=== PATIENT | female | born 1950 | race Caucasian/White ===

== ENCOUNTER 2018-02-21 02:21 | Emergency (ER) | payer MEDICARE ==
[2018-02-21] MEDS ORDERED: Ondansetron HCl/PF 4 MG/2 ML Vial ONE (02:46)
--- NOTE | 2018-02-21 07:54 | ULT ---
PRELIMINARY REPORT/[facility]/EMERGENCY AFTER HOURS PROCEDURE: EXAM: US Duplex Bilateral Lower Extremity Veins CLINICAL HISTORY: 67 years old, female; Pain and signs and symptoms; Edema, localized; Lower extremity, bilateral; Leg, lower; Patient HX: Recent long car ride. Elevated d-dimer TECHNIQUE: Real-time ultrasound scan of the veins of the bilateral lower extremities with color Doppler flow, sp ectral waveform analysis and compression. COMPARISON: No relevant prior studies available. FINDINGS: Right deep veins: Unremarkable. No DVT in the right common femoral, femoral, proximal deep femoral or popliteal veins. The veins demonstrate normal color flow, are normally compressible, with normal pha sic flow and/or augmentation response. Right superficial veins: Unremarkable. No thrombus in the visualized right great saphenous vein. Left deep veins: Unremarkable. No DVT in the left common femoral, femoral, proximal deep femoral or p opliteal veins. The veins demonstrate normal color flow, are normally compressible, with normal phasi c flow and/or augmentation response. Left superficial veins: Unremarkable. No thrombus in the visualized left great saphenous vein. Soft tissues: Soft tissue edema in the legs bilaterally. No popliteal cyst. IMPRESSION: No sonographic evidence for deep venous thrombosis Thank you for allowing us to participate in the care of your patient. Dictated and Authenticated by: Dandre Werner MD 02/21/2018 4:45 AM Central Time ([place] & [place]) FINAL REPORT BILATERAL LOWER EXTREMITY VENOUS ULTRASOUND: I agree with the preliminary report given by Dr. Dandre Werner of [facility]. POS: [facility]
== END 2018-02-21 08:18 | disposition home or self-care (01) ==
LOC: ERS 02:21
DX: R60.0 Localized edema (principal); M06.9 Rheumatoid arthritis, unspecified; L89.151 Pressure ulcer of sacral region, stage 1; E11.9 Type 2 diabetes mellitus without complications; I25.2 Old myocardial infarction; Z87.891 Personal history of nicotine dependence; Z79.82 Long term (current) use of aspirin; Z79.899 Other long term (current) drug therapy
CPT/HCPCS: 36415; 36416; 82550; 93970; 96361; 96374; J2405